=== PATIENT | female | born 1970 | race Caucasian/White ===

== ENCOUNTER 2023-10-09 07:04 | Day surgery (SDC) | payer OTHER ==
[~2023-10-09] VITALS: Ht 157.5 cm; Wt 72.1 kg
[~2023-10-09 07:04] MED LIST: IBLOOD GLUCOSE TEST STRIP 1 EA TEST VI PRN; LACTATED RINGER'S 1,000 ML IV SCH; LIDOCAINE HCL 1% 5 ML SDV INJ ONE; MIDAZOLAM HCL 5 MG/5 ML VIAL IV PRN; fentaNYL citrate 100 MCG/2 ML VIAL IV PRN
--- NOTE | 2023-10-09 07:27 | NUR ---
PT NOT AVAILABLE FOR VISIT. PROVIDED PRAYER.
[2023-10-09] MEDS ORDERED: MIDAZOLAM HCL 5 MG/5 ML VIAL ONE (08:07)
[2023-10-09] MEDS ORDERED: fentaNYL citrate 100 MCG/2 ML VIAL ONE (08:08)
[2023-10-09] MEDS ORDERED: MIDAZOLAM HCL 2 MG/2 ML VIAL ONE (08:41)
--- NOTE | 2023-10-09 08:57 | NUR ---
10/09/23 0857 Jing Rodríguez 0855-PT TO PACU IN LL POSITION. EYES OPEN. DENIES PAIN AND NAUSEA. PT DROWSY AND FALLS BACK TO SLEEP. BREATHING EASY AND UNLABORED. SPO2 >95% ON 2 L O2 VIA NC. PT ENCOURAGED TO PASS GAS.
[2023-10-09 09:46] VITALS: BP 106/73
--- NOTE | 2023-10-09 12:09 | OR ---
[facility] [address] [place], [place] [address] Signed DATE OF OPERATION: 10/09/2023 SURGEON: Ryann Valverde MD PREOPERATIVE DIAGNOSIS: Screening. POSTOPERATIVE DIAGNOSES: 1. 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 3. Minimal to moderate internal hemorrhoids. PROCEDURE: Colonoscopy with random biopsies x2. ESTIMATED BLOOD LOSS: None. INDICATIONS: Adele is a 52-year-old female, asked to see me for her initial screening colonoscopy. She has no lower GI complaints. There is no family history of colon cancer or polyps. In the office, I had given her a pamphlet on colonoscopy. We reviewed the nature of the test. There is risk including, but not limited to gas bloating, crampy abdominal pain, bleeding, perforation requiring surgery, and missed diagnosis. We also reviewed the written instructions for the bowel prep line by line. She told me she had vomited some with the bowel prep. Consequently, she should do her bowel prep the next time much slower. We had reviewed the need for IV conscious sedation. She understands an adult person has to take her home afterwards. She had expressed understanding and wished to proceed. PROCEDURE IN DETAIL: Adele was taken into our endoscopy suite and placed in the left lateral decubitus position. She was given a total of 10 mg of Versed and 150 mcg of fentanyl. We found that indeed she has a long redundant colon. Consequently, she was frequently awake and looking around, talking to us and helping us roll into the supine position. In the future, she would be much better served with propofol infusion with monitored anesthesia care. A digital rectal exam had been performed. She has very little if any external hemorrhoids. She had good sphincter tone. There were no masses. The adult colonoscope was introduced and advanced under direct visualization of the camera. We found that indeed she has a very long redundant colon. She has mild melanosis coli with tiger Electronically Signed By: RYANN VALVERDE MD 10/09/23 1209 PATIENT NAME: ADELE TINEO OPERATIVE REPORT DATE OF : 74 REPORT #: [id number] PHYSICIAN: RYANN VALVERDE MD PCP: CAITLYN ALBERTS PA-C REPORT IS CONFIDENTIAL AND NOT TO BE RELEASED WITHOUT AUTHORIZATION [facility] [address] [place] [id number] Signed striping throughout. Consequently, we took a couple of random biopsies for the melanosis coli. At one point, we were quite concerned we were not going to make it down the right colon into the cecum. We were very close having to call our anesthesia provider. Finally, she was just sedated enough we got our camera down into the cecum itself. At that point, she was more relaxed. We could easily see the appendiceal orifice and the ileocecal valve. Fortunately, her prep was quite good. The scope was then slowly withdrawn. We took several pictures throughout for photodocumentation. Once we were in the rectum, the scope was retroflexed and she does have minimal to moderate standard internal hemorrhoid tissue. After this, the gas was suctioned out and the colonoscope removed. Adele tolerated the procedure quite well. RECOMMENDATIONS: I will see Adele back in my office in 7 to 14 days to review her random biopsies with respect to melanosis coli. She should probably have monitored anesthesia care with propofol infusion in the future. She will need to do a slower bowel prep in the future because of her vomiting. Ryann Valverde MD ALB/MODL /[id number] cc: SHANTELLE Ybarra MD Copies: CAITLYN ALBERTS PA-C, ANDREW L MD ~ Electronically Signed By: RYANN VALVERDE MD 10/09/23 1209 PATIENT NAME: ADELE TINEO OPERATIVE REPORT DATE OF : 74 REPORT #: [id number] PHYSICIAN: RYANN VALVERDE MD PCP: CAITLYN ALBERTS PA-C REPORT IS CONFIDENTIAL AND NOT TO BE RELEASED WITHOUT AUTHORIZATION
--- NOTE | 2023-10-13 11:06 | PATH ---
[facility] [address] [place], [place] [address] Signed SPECIMEN(S): A COLON BIOPSY SPECIMEN SOURCE: A. COLON BIOPSY CLINICAL HISTORY: Initial screening colonoscopy. Melanosis coli; long redundant colon, external hemorrhoids FINAL PATHOLOGIC DIAGNOSIS: Colon, biopsies: - Melanosis coli, negative for active colitis, granulomas or dysplasia. AMB MICROSCOPIC EXAMINATION: Histologic sections of all submitted blocks are examined by light microscopy. These findings, together with the gross examination, support the pathologic diagnosis. GROSS DESCRIPTION: The specimen, labeled and designated "Winkler, colon biopsy," is received in formalin and consists of two boyd soft tissue fragments, ranging from 0.1-0.2 cm. Entirely submitted in (A1). JS (under the direct supervision of a pathologist) The Gross Description was prepared using a voice recognition system. The report was reviewed for accuracy; however, sound-alike word errors, addition and/or deletions may occur. If there is any question about this report, please contact Client Services. ADDITIONAL NOTES: Immunohistochemical and/or in situ hybridization studies if performed in this case included appropriate positive controls that reacted as expected. This test was developed and its performance characteristics determined by [facility]. It has not been cleared or approved by the U.S. Food and Drug Administration. The FDA has determined that such clearance or approval is not necessary. This test is used for clinical purposes. It should not be regarded as investigational or for research. [facility] is certified under the Clinical Laboratory Improvement Amendments of 1988 (CLIA) as qualified to perform high complexity clinical laboratory testing. PATIENT NAME: ADELE WINKLER PATHOLOGY DATE OF : 74 REPORT #: [id number] PHYSICIAN: CECILE VALENTIN PCP: CAITLYN ALBERTS PA-C REPORT IS CONFIDENTIAL AND NOT TO BE RELEASED WITHOUT AUTHORIZATION [place] [id number] [facility] [place], [place] [address] Signed PERFORMING LABORATORY: Technical component was performed by [facility], [address] [place] [address] (CLIA# [id number]). [facility] [address] [id number] Diagnostician: Nuria Bellamy MD Pathologist Electronically Signed 10/13/2023 Copies: ~ PATIENT NAME: ADELE WINKLER PATHOLOGY DATE OF : 74 REPORT #: [id number] PHYSICIAN: CECILE VALENTIN PCP: CAITLYN ALBERTS PA-C REPORT IS CONFIDENTIAL AND NOT TO BE RELEASED WITHOUT AUTHORIZATION
== END 2023-10-09 09:55 | disposition home or self-care (01) ==
LOC: DS 07:04
PROVIDERS: ATTEND Colon & Rectal Surgery
PROC: 0DBE8ZX Excision of Large Intestine, Via Natural or Artificial Opening Endoscopic, Diagnostic (ICD-10-PCS; principal; 2023-10-09)
DX: Z12.11 Encounter for screening for malignant neoplasm of colon (principal); K63.89 Other specified diseases of intestine; Q43.8 Other specified congenital malformations of intestine; K64.8 Other hemorrhoids; K64.4 Residual hemorrhoidal skin tags; I10 Essential (primary) hypertension; E78.5 Hyperlipidemia, unspecified; F32.9 Major depressive disorder, single episode, unspecified; E66.3 Overweight; Z68.29 Body mass index [BMI] 29.0-29.9, adult; Z88.1 Allergy status to other antibiotic agents; Z79.899 Other long term (current) drug therapy
CPT/HCPCS: 36415; 84703; 99153; G0500; J2250; J3010; J7121